=== PATIENT | female | born 1995 | race Caucasian/White ===

== ENCOUNTER 2016-07-19 17:31 | Emergency (ER) | payer MEDICAID ==
[2016-07-19 18:41] LABS: BILIRUBIN,URINE NEGATIVE (NEGATIVE)
[2016-07-19 18:43] LABS: UA w/ MICROSCOPIC CHARGE YES
--- NOTE | 2016-07-19 18:55 | ED Physician Documentation ---
PD HPI FEMALE - Stated complaint Stated Complaint: BLOOD IN URINE/11 WEEKS - Chief complaint Chief Complaint: UTI - History obtained from History obtained from: Patient - History of Present Illness Timing - onset: Today (noted some dysuira and blood in urine. No vaginal discharge nor rash.) Timing - duration: Days (1) Timing - details: Abrupt onset, Still present Associated symptoms: Dysuria, Urinary frequency, Hematuria. No: Fever, Vaginal bleeding, Vaginal discharge, Genital sore/lesion Contributing factors: Similar symptoms before: Diagnosis (UTIs) Recently seen: Not recently seen Review of Systems Constitutional: denies: Fever, Chills Nose: denies: Rhinorrhea / runny nose, Congestion Throat: denies: Sore throat Respiratory: denies: Cough : reports: Dysuria, Frequency, Hematuria, Now EGA (11). denies: Discharge Skin: denies: Rash, Lesions Neurologic: reports: Generalized weakness. 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 HEENT: Tonsil/Adenoidectomy - Present Medications Home Medications: Ambulatory Orders Medication Instructions Recorded Confirmed Cephalexin [Keflex] 500 mg PO TID #18 capsule 07/19/16 Ondansetron HCl [Zofran] 0 mg PO .FREQ 07/19/16 07/19/16 Pnv95/Ferrous Fumarate/FA 07/19/16 [ Tablet] - Allergies Allergies/Adverse Reactions: Allergies Allergy/AdvReac Type Severity Reaction Status Date / Time Penicillins AdvReac Unknown Verified 07/19/16 18:47 - Social History Does the pt smoke?: No Smoking Status: Never smoker Does the pt drink ETOH?: No Does the pt have substance abuse?: No - Immunizations Immunizations are current?: Yes PD ED PE NORMAL - Vitals Vital signs reviewed: Yes - General General: Alert and oriented X 3, No acute distress, Well developed/nourished - HEENT HEENT: Pharynx benign - Neck Neck: Supple, no meningeal sign, No adenopathy - Cardiac Cardiac: RRR, No murmur - Respiratory Respiratory: Clear bilaterally - Abdomen Abdomen: Normal bowel sounds, Soft, Non tender, Non distended, Other (gravid with fundus above the symphysis. Bedside U/S shows viable IUP c/w dates and showing some movement and noted FHR 130s. ) - Female Female : Deferred - Rectal Rectal: Deferred - Back Back: No CVA TTP - Derm Derm: Normal color, Warm and dry Results - Vitals Vitals: Oxygen O2 Source Room air - Labs Labs: Laboratory Tests 07/19/16 17:50 Urine Color YELLOW Urine Clarity HAZY Urine pH 6.5 Ur Specific [place] 1.025 Urine Protein NEGATIVE Urine Glucose (UA) NEGATIVE Urine Ketones NEGATIVE Urine Occult Blood MODERATE H Urine Nitrite NEGATIVE Urine Bilirubin NEGATIVE Urine Urobilinogen 0.2 (NORMAL) Ur Leukocyte Esterase NEGATIVE Urine RBC 6-10 H Urine WBC 4-5 Ur Squamous Epith Cells MANY Squamous H Urine Bacteria Few Urine Mucus Moderate Strands Ur Microscopic Review INDICATED Urine Culture Comments NOT INDICATED PD MEDICAL DECISION MAKING - ED course Complexity details: considered differential (symptoms are c/w UTI and urine is questionable. Given , would err on side of treating, pending culture anyway. ), d/w patient Departure - Departure Disposition: Home, Self Care Clinical Impression: Dysuria, Cystitis Qualifiers: Weeks of gestation: 11 weeks Qualified Code(s): Z3A.11 - 11 weeks gestation of Condition: Stable Record reviewed to determine appropriate education?: Yes Instructions: ED UTI Cystitis Female Follow-Up: Villa Murdock MD [Primary Care Provider] - Prescriptions: Cephalexin [Keflex] 500 mg PO TID #18 capsule Comments: Looks like early bladder infection. Keflex as directed for that. Drink lots of fluids. Recheck with PMD/OB in 2-3 days if not improved. Tylenol if needed for pains/discomfort. Discharge Date/Time: 07/19/16 20:13
[2016-07-19] MEDS ORDERED: CEPHALEXIN 250 MG CAPSULE PO STA (19:18)
[2016-07-19 19:20] LABS: PH,URINE 6.5 PH (5.0-7.5)
[2016-07-19] MEDS ORDERED: CEPHALEXIN 250 MG CAPSULE PO ONE (19:22)
[2016-07-19 19:28] LABS: UR CULTURE IF IND NOT INDICATED
[2016-07-19 20:09] VITALS: BP 143/61
== END 2016-07-19 20:13 | disposition home or self-care (01) ==
LOC: ED 17:31
DX: O23.11 Infections of bladder in pregnancy, first trimester (principal); Z3A.11 11 weeks gestation of pregnancy
CPT/HCPCS: 81001; 99283; A9270; 81003; 87086

== ENCOUNTER 2016-07-31 09:47 | Emergency (ER) | payer MEDICAID ==
[2016-07-31] MEDS ORDERED: SODIUM CHLORIDE 0.9% 1,000 ML IV ONE (11:00)
[2016-07-31] MEDS ORDERED: cefTRIAXone 1 GM in SODIUM CHLORIDE 0.9% MINIBAG 100 ML IV STA (12:58)
[2016-07-31] MEDS ORDERED: cefTRIAXone 1 GM VIAL ONE (12:58)
== END 2016-07-31 13:46 | disposition home or self-care (01) ==
DX: O99.611 Diseases of the digestive system complicating pregnancy, first trimester (principal); K52.9 Noninfective gastroenteritis and colitis, unspecified; O99.281 Endocrine, nutritional and metabolic diseases complicating pregnancy, first trimester; E86.0 Dehydration; O99.89 Other specified diseases and conditions complicating pregnancy, childbirth and the puerperium; H66.92 Otitis media, unspecified, left ear; Z3A.12 12 weeks gestation of pregnancy

== ENCOUNTER 2016-08-04 14:55 | Outpatient (CLI) | payer MEDICAID | END 2016-08-04 14:56 | disposition home or self-care (01) | DX: Z36 Encounter for antenatal screening of mother (principal) ==

== ENCOUNTER 2016-09-27 07:37 | Outpatient (CLI) | payer MEDICAID ==
--- NOTE | 2016-09-27 14:33 | Ultrasound Report ---
OB ULTRASOUND: 09/27/2016 CLINICAL INDICATION: anatomy. TECHNIQUE: Real-time scanning was performed with business services representative static images obtained. LAST MENSTRUAL PERIOD -- Clinical Age -- US Age 20 weeks 5 days EFW Hadlock 364 g EFW% Hadlock -- Heart Rate 150 bpm EDC -- US EDC 02/09/2017 BPD Hadlock 20 weeks 5 days; means mm 48.5 HC Hadlock 20 weeks 5 days; means mm 183.9 AC Hadlock 20 weeks 2 days; means mm 150.2 FL Hadlock 21 weeks 0 day; means mm 34.7 Presentation cephalic Placental Location posterior Cervical Length 3.5 cm Amniotic Fluid 13.9 5-50 % FINDINGS: There is a single viable intrauterine gestation, in cephalic presentation. heart rate is 150 BPM. The placenta is posterior, without evidence of previa. Amniotic fluid volume is normal, with an PREMA of 13.9. By size, the fetus measures 20.7 weeks (uncertain LMP). The kidneys and urinary bladder, extremities, and posterior fossa appear unremarkable. The remainder of the anatomic survey is limited, due to positioning and habitus. No free fluid or adnexal lesion is appreciated. IMPRESSION: SINGLE VIABLE INTRAUTERINE GESTATION, MEASURING 20.7 WEEKS BY SIZE. LIMITED ANATOMIC SURVEY ABOVE. MTDD
== END 2016-09-27 07:38 | disposition home or self-care (01) ==
LOC: DI 07:37
PROVIDERS: ATTEND Obstetrics & Gynecology
DX: Z34.82 Encounter for supervision of other normal pregnancy, second trimester (principal)
CPT/HCPCS: 76811

== ENCOUNTER 2016-10-26 08:02 | Outpatient (CLI) | payer MEDICAID ==
--- NOTE | 2016-10-27 11:17 | Ultrasound Report ---
OBSTETRICAL ULTRASOUND: 10/26/2016 This is a followup exam for (00:10) . TECHNIQUE: Real-time scanning was performed with wholesale representative static images obtained. LAST MENSTRUAL PERIOD 05/04/2016 Clinical Age 25 weeks 0 days US Age 25 weeks 1 day EFW Hadlock 777 g EFW% Hadlock 50% Heart Rate 157 bpm EDC 02/08/2017 US EDC 02/07/2017 BPD Hadlock 25 weeks 3 days; Mean mm 62.8 HC Hadlock 25 weeks 2 days; Mean mm 233.1 AC Hadlock 25 weeks 1 day; Mean mm 205.9 FL Hadlock 25 weeks 0 days; Mean mm 45.5 Presentation cephalic Placental Location posterior Cervical Length --- Amniotic Fluid 21.6 cm Single fetus is noted in vertex position. Composite gestational age by ultrasound today is 25 weeks 1 day. EDC by ultrasound today is 02/08/2017. Present gestational age is one day more advanced than expected as calculated from patient's clinical LMP. It is two days more advanced than expected as calculated from preceding ultrasound. Estimated weight today is 777 grams. This is in the 50th percentile. heart rate today is 157 beats per minute and regular. anatomy was difficult to optimally visualize because of the maternal large body habitus. head was seen and showed no significant abnormality. spine showed no obvious abnormality. bladder was demonstrated. Four-chamber view of the heart appeared normal. Optimal cardiac outflow track could not be demonstrated because of maternal body habitus. bladder is seen and normal. kidneys show no obvious abnormality. face shows normal nasal bones and contour. Placenta is posterior. No evidence of placenta previa is seen. Normal three-vessel umbilical cord is seen. Normal umbilical cord insertion site is noted. Maternal cervix could not optimally be seen. Patient could not tolerate probe pressure over this area. Generous amount of amniotic fluid is noted with PREMA measuring 22 cm. This is right at the upper limits of normal. IMPRESSION: 1. SINGLE FETUS IS NOTED IN VERTEX POSITION. PRESENT GESTATIONAL AGE BY ULTRASOUND IS 25 WEEKS 1 DAY. EDC BY ULTRASOUND TODAY IS 02/08/2017. PRESENT GESTATIONAL AGE IS ONE DAY MORE ADVANCED THAN EXPECTED CALCULATED FROM PATIENT'S LMP. PATIENT'S GESTATIONAL AGE TODAY IS TWO DAYS MORE ADVANCED THAN CALCULATED FROM PATIENT'S LAST ULTRASOUND EXAM. 2. ANATOMY WAS NOT OPTIMALLY VISUALIZED FOR REASONS DISCUSSED ABOVE.. NO OBVIOUS ABNORMALITY WAS SEEN. 3. POSTERIOR PLACENTA IS NOTED WITHOUT EVIDENCE OF PLACENTA PREVIA. 4. GENEROUS AMOUNT OF AMNIOTIC FLUID IS SEEN WITH AMNIOTIC FLUID VOLUME INDEX AT 21.6 CM. THIS IS AT THE UPPER LIMITS OF NORMAL MTDD
== END 2016-10-26 08:03 | disposition home or self-care (01) ==
LOC: DI 08:02
PROVIDERS: ATTEND Obstetrics & Gynecology
DX: Z36 Encounter for antenatal screening of mother (principal)
CPT/HCPCS: 76816

== ENCOUNTER 2016-11-08 17:33 | Outpatient (CLI) | payer MEDICAID ==
[2016-11-08 17:52] VITALS: BP 104/83
[2016-11-08 18:06] LABS: BILIRUBIN,URINE NEGATIVE (NEGATIVE)
[2016-11-08 18:16] LABS: UR CULTURE IF IND NOT INDICATED; WBC,URINE 0-3 /HPF (0-5)
== END 2016-11-08 18:25 | disposition home or self-care (01) ==
LOC: WFO 17:33 → OB 17:35 → WFO 18:25
PROVIDERS: ATTEND Obstetrics & Gynecology
DX: O99.89 Other specified diseases and conditions complicating pregnancy, childbirth and the puerperium (principal); M54.9 Dorsalgia, unspecified; Z3A.26 26 weeks gestation of pregnancy
CPT/HCPCS: 81001; 87086; 99213

== ENCOUNTER 2016-11-08 18:32 | Emergency (ER) | payer MEDICAID ==
[2016-11-08 18:38] VITALS: BP 116/77
[2016-11-08] MEDS ORDERED: HYDROcod/ACET 5/325 Prepack 6 PO STA (21:15)
[2016-11-08] MEDS ORDERED: CYCLOBENZAPRINE 10 MG Prepack 2 PO PRN (21:16)
--- NOTE | 2016-11-08 21:19 | ED Physician Documentation ---
PD HPI BACK PAIN - Stated complaint Stated Complaint: back pain - Chief complaint Chief Complaint: Back Pain - History obtained from History obtained from: Patient - History of Present Illness Timing - onset: Other ( at 26 weeks complains of 3 days of increasing low back pain radiating to both sides and buttocks without weakness, numbness, or tingling, no saddle anesthesia, no incontinence, no fevers, no urinary complaints. 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 HEENT: Tonsil/Adenoidectomy - Present Medications Home Medications: Ambulatory Orders Medication Instructions Recorded Confirmed Acetaminophen 500 - 1,000 mg PO PRN PRN 11/08/16 11/08/16 Cyclobenzaprine [Flexeril] 10 mg PO TID PRN #10 tablet 11/08/16 HYDROcod/ACETAM 5/325 [[place] 5/325] 1 - 2 ea PO Q6H PRN #10 tablet 11/08/16 - Allergies Allergies/Adverse Reactions: Allergies Allergy/AdvReac Type Severity Reaction Status Date / Time Penicillins AdvReac Unknown Verified 11/08/16 20:48 - Social History Does the pt smoke?: No Smoking Status: Never smoker Does the pt drink ETOH?: No Does the pt have substance abuse?: No - Immunizations Immunizations are current?: Yes PD ED PE NORMAL - Vitals Vital signs reviewed: Yes - General General: Alert and oriented X 3, No acute distress - Back Back: No spinal TTP, Other (Paralumbar muscular tenderness.) - Derm Derm: Normal color, Warm and dry - Extremities Extremities: Other (The patient has equal and normal Achilles and patellar reflexes bilaterally. Normal sensation in all areas of the legs. Patient denies saddle anesthesia. Normal strength in flexion-extension at the ankles, knees, and flexion of the hips.) - Neuro Neuro: Alert and oriented X 3, Normal speech - Psych Psych: Normal mood, Normal affect Results - Vitals Vitals: Vital Signs - 24 hr 11/08/16 18:35 Temperature 36.6 C Heart Rate 72 Respiratory 18 Rate Blood Pressure 116/77 O2 Saturation 100 Oxygen O2 Source Room air PD MEDICAL DECISION MAKING - ED course ED course: This patient has seemingly uncomplicated musculoskeletal back pain. The patient has no "red flags." Specifically denies IV drug use, fevers, incontinence, saddle anesthesia. Spinal epidural abscess was considered, given that the patient has no fever, is not diabetic, has no spinal tenderness, does not use IV drugs, and has no bilateral neurologic symptoms, the diagnosis of spinal epidural abscess is considered exceedingly unlikely. The [place] prescription monitoring program was queried with regard to this patient. No concerning findings were found. Departure - Departure Disposition: 01 Home, Self Care Clinical Impression: Back pain Qualifiers: Back pain location: low back pain Chronicity: acute Back pain laterality: bilateral Sciatica presence: without sciatica Qualified Code(s): M54.5 - Low back pain Condition: Good Record reviewed to determine appropriate education?: Yes Instructions: ED Neck Back Pain General Prescriptions: Cyclobenzaprine [Flexeril] 10 mg PO TID PRN #10 tablet PRN Reason: Pain HYDROcod/ACETAM 5/325 [[place] 5/325] 1 - 2 ea PO Q6H PRN #10 tablet PRN Reason: Pain Comments: Call your doctor to arrange a follow-up appointment, make the next available appointment. In the interim, return anytime if worse or if new symptoms develop. Do not drink or drive while taking narcotic pain medication. Note that many narcotic pain relievers also contain Tylenol/acetaminophen. Please ensure that your total dose of acetaminophen from all sources does not exceed 3 g (3000 mg) per day. You may get constipated while on this medication. Take a stool softener such as Colace twice a day while you are on it. Also add an [id number] laxative such as senna or MiraLAX on any day that you do not have a bowel movement. If you received a narcotic pain medication or sedative while in the emergency department, do not drive for the next 24 hours.
[2016-11-08] MEDS ORDERED: HYDROcod/ACET 5/325 Prepack 6 PO ONE (21:20)
[2016-11-08] MEDS ORDERED: CYCLOBENZAPRINE 10 MG Prepack 2 PO ONE (21:21)
== END 2016-11-08 21:29 | disposition home or self-care (01) ==
LOC: ED 18:32
DX: O26.892 Other specified pregnancy related conditions, second trimester (principal); M54.5 Low back pain; Z3A.26 26 weeks gestation of pregnancy
CPT/HCPCS: 81001; 87086; 99213; 99283

== ENCOUNTER 2016-11-24 08:00 | Outpatient (CLI) | payer MEDICAID ==
[2016-11-24 19:02] LABS: BASOPHILS % (AUTO) 0.3 %; EOSINOPHILS % (AUTO) 0.5 %; HCT - HEMATOCRIT 33.8 % (37.0-47.0); HGB - HEMOGLOBIN 11.1 g/dL (12.0-16.0); LYMPHOCYTES # (AUTO) 1.5 10^3/uL (1.5-3.5); LYMPHOCYTES % (AUTO) 17.1 %; MEAN CORPUSCULAR HEMOGLOBIN 28.4 pg (27.0-31.0); MEAN CORPUSCULAR HGB CONC 32.7 g/dL (32.0-36.0); MEAN CORPUSCULAR VOLUME 86.9 fL (81.0-99.0); MONOCYTES # (AUTO) 0.5 10^3/uL (0.0-1.0); MONOCYTES % (AUTO) 5.7 %; NEUTROPHILS # (AUTO) 6.6 10^3/uL (1.5-6.6); NEUTROPHILS % (AUTO) 76.4 %; NUCLEATED RED BLOOD CELLS AUTO 0.1 /100WBC; RED BLOOD COUNT 3.89 10^6/uL (4.20-5.40); RED CELL DISTRIBUTION WIDTH 13.9 % (12.0-15.0); UNCORRECTED WHITE BLOOD COUNT 8.6 x10^3/uL; WHITE BLOOD COUNT 8.6 x10^3/uL (4.8-10.8)
== END 2016-11-24 08:01 | disposition home or self-care (01) ==
LOC: LAB.WCP 08:00
PROVIDERS: ATTEND Obstetrics & Gynecology
DX: Z36 Encounter for antenatal screening of mother (principal)
CPT/HCPCS: 36415; 82950; 85025; 86850

== ENCOUNTER 2019-05-18 08:00 | Outpatient (CLI) | payer MEDICAID ==
[2019-05-18 19:37] LABS: TRICHOMONAS VAGINALIS DNA NEGATIVE (NEGATIVE)
== END 2019-05-18 23:59 | disposition home or self-care (01) ==
LOC: LAB.R 08:00
PROVIDERS: ATTEND Nurse Practitioner Obstetrics & Gynecology
DX: Z11.3 Encounter for screening for infections with a predominantly sexual mode of transmission (principal)
CPT/HCPCS: 87491; 87591; 87661

== ENCOUNTER 2019-05-30 09:49 | Outpatient (CLI) | payer MEDICAID | END 2019-05-30 09:50 | disposition home or self-care (01) | LOC: LAB 09:49 | PROVIDERS: ATTEND Nurse Practitioner Obstetrics & Gynecology | DX: O03.9 Complete or unspecified spontaneous abortion without complication (principal) | CPT/HCPCS: 36415; 84702 ==

== ENCOUNTER 2019-06-06 13:20 | Outpatient (CLI) | payer MEDICAID | END 2019-06-06 13:21 | disposition home or self-care (01) | LOC: LAB.S 13:20 | PROVIDERS: ATTEND Nurse Practitioner Obstetrics & Gynecology | DX: O03.9 Complete or unspecified spontaneous abortion without complication (principal) | CPT/HCPCS: 36415; 84702 ==

== ENCOUNTER 2019-06-21 10:48 | Outpatient (CLI) | payer MEDICAID | END 2019-06-21 10:49 | disposition home or self-care (01) | LOC: LAB.S 10:48 | PROVIDERS: ATTEND Nurse Practitioner Obstetrics & Gynecology | DX: Z33.2 Encounter for elective termination of pregnancy (principal) | CPT/HCPCS: 36415; 84702 ==

== ENCOUNTER 2020-06-13 08:00 | Outpatient (CLI) | payer MEDICAID | END 2020-06-13 23:59 | disposition home or self-care (01) | LOC: LAB.R 08:00 | PROVIDERS: ATTEND Obstetrics & Gynecology | DX: Z20.2 Contact with and (suspected) exposure to infections with a predominantly sexual mode of transmission (principal) | CPT/HCPCS: 87491; 87591; 87661 ==

== ENCOUNTER 2020-06-13 15:43 | Outpatient (CLI) | payer MEDICAID ==
[2020-06-13 16:38] LABS: CHOL/HDL RATIO 5.2 (<4.4); CHOLESTEROL 206 mg/dL; HDL CHOLESTEROL 40 mg/dL; LDL CHOLESTEROL,CALCULATED 137 mg/dL; LDL/HDL RATIO 3.4 (<4.4); VLDL CHOLESTEROL 29 mg/dL
[2020-06-13 21:03] LABS: HEMOGLOBIN A1c% 5.8 % (4.27-6.07)
[2020-06-14 10:52] LABS: HIV AG/AB 4TH GEN NON-REACTIVE (NON-REACTIVE)
[2020-06-14 12:42] LABS: HEPATITIS B SURFACE ANTIGEN NON-REACTIVE (NON-REACTIVE)
== END 2020-06-13 15:44 | disposition home or self-care (01) ==
LOC: LAB 15:43
PROVIDERS: ATTEND Obstetrics & Gynecology
DX: E66.01 Morbid (severe) obesity due to excess calories (principal); Z20.2 Contact with and (suspected) exposure to infections with a predominantly sexual mode of transmission
CPT/HCPCS: 36415; 80061; 81599; 83036; 83721; 84443; 86592; 87340; 87389; 87491; 87591; 87661

== ENCOUNTER 2020-06-18 22:03 | Emergency (ER) | payer MEDICAID ==
[2020-06-18 23:01] LABS: BILIRUBIN,URINE NEGATIVE (NEGATIVE); CLARITY,URINE CLEAR (CLEAR); GLUCOSE, URINE (UA) NEGATIVE (NEGATIVE); KETONES,URINE (UA) NEGATIVE (NEGATIVE); LEUKOCYTE ESTERASE, URINE NEGATIVE (NEGATIVE); NITRITE,URINE NEGATIVE (NEGATIVE); OCCULT BLOOD,URINE NEGATIVE (NEGATIVE); PROTEIN,URINE NEGATIVE (NEGATIVE); UROBILINOGEN,URINE 0.2 (NORMAL) E.U./dL (NORMAL)
[2020-06-18 23:02] LABS: HCG UR QUAL NEGATIVE
[2020-06-18] MEDS ORDERED: SODIUM CHLORIDE 0.9% 1,000 ML IV STA (23:19)
[2020-06-18] MEDS ORDERED: KETOROLAC 30 MG/ML VIAL IVP STA (23:19)
[2020-06-18] MEDS ORDERED: ONDANSETRON 4 MG/2 ML VIAL IVP STA (23:19)
--- NOTE | 2020-06-18 23:22 | ED Physician Documentation ---
PD HPI ABD PAIN - Stated complaint Stated Complaint: ABD PX - Chief complaint Chief Complaint: Abd Pain - History obtained from History obtained from: Patient - History of Present Illness Timing - onset: Today Timing - duration: Hours Timing - details: Gradual onset, Still present Pain level max: 7 Pain level now: 7 Quality: Cramping, Sharp, Pain Location: RLQ, Suprapubic Improved by: Laying still Worsened by: Moving, Position, Palpation Associated symptoms: Nausea, Vomiting. No: Fever Similar symptoms before: Has not had sx before Recently seen: Clinic - Additional information Additional information: 24-year-old female had a Depo-Provera shot done 5 days ago and this morning aw pari with pain in her scar that was tender and firm above and over the scar and she has had a reduced appetite and some vomiting but no fever. She has not had these symptoms previously. She denies any diarrhea or constipation. Review of Systems Constitutional: denies: Fever Eyes: denies: Decreased vision Ears: denies: Ear pain Nose: denies: Congestion Throat: denies: Sore throat Cardiac: denies: Chest pain / pressure, Palpitations Respiratory: denies: Dyspnea, Cough GI: reports: Abdominal Pain, Nausea, Vomiting. 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 - Present Medications Home Medications: Ambulatory Orders Medication Instructions Recorded Confirmed Azithromycin [Zithromax] 250 mg PO DAILY #4 tab 06/19/20 traMADol [Ultram] 50 - 100 mg PO Q6H PRN #20 tab 06/19/20 - Allergies Allergies/Adverse Reactions: Allergies Allergy/AdvReac Type Severity Reaction Status Date / Time Penicillins AdvReac Unknown Verified 06/18/20 22:18 - Social History Does the pt smoke?: No Smoking Status: Never smoker Does the pt drink ETOH?: No Does the pt have substance abuse?: No - Immunizations Immunizations are current?: Yes PD ED PE NORMAL - Vitals Vital signs reviewed: Yes (Afebrile and hypertensive) - General General: Alert and oriented X 3, No acute distress, Well developed/nourished - HEENT HEENT: Atraumatic, PERRL, EOMI, Other (both TM's inflammed with distortion of the landmarks. ) - Neck Neck: Supple, no meningeal sign - Cardiac Cardiac: RRR, No murmur - Respiratory Respiratory: No respiratory distress, Clear bilaterally - Abdomen Abdomen: Normal bowel sounds, Soft, Non distended, No organomegaly, Other (There is morbid obesity and there is a well-healed Pfannenstiel incision with some satellite papules consistent with a yeast dermatitis the area itself is not particularly tender however when I compress the right lower quadrant lateral to the scar there is pain to the right lower quadrant ) - Back Back: No CVA TTP, No spinal TTP - Derm Derm: Normal color, Warm and dry, No rash - Extremities Extremities: No deformity, No edema - Neuro Neuro: Alert and oriented X 3, director dental services 2-12 intact, No motor deficit, No sensory deficit, Normal speech Eye Opening: Spontaneous Motor: Obeys Commands Verbal: Oriented GCS Score: 15 - Psych Psych: Normal mood, Normal affect Results - Vitals Vitals: Vital Signs - 24 hr 06/18/20 06/19/20 06/19/20 22:17 00:18 02:00 Temperature 36.1 C L 37.0 C 37.1 C Heart Rate 91 81 82 Respiratory 19 18 18 Rate Blood Pressure 138/78 H 134/102 H 150/98 H O2 Saturation 100 98 99 06/19/20 03:12 Temperature 36.9 C Heart Rate 84 Respiratory 18 Rate Blood Pressure 138/85 H O2 Saturation 98 Oxygen O2 Source Room air - Labs Labs: Laboratory Tests 06/18/20 06/18/20 06/18/20 22:34 22:34 23:44 WBC 11.5 H RBC 4.65 Hgb 13.2 Hct 41.1 MCV 88.4 MCH 28.4 MCHC 32.1 RDW 13.6 Plt Count 250 MPV 10.6 Neut # (Auto) 5.8 Lymph # (Auto) 4.9 H Ida # (Auto) 0.7 Eos # (Auto) 0.1 Baso # (Auto) 0.0 Absolute Nucleated RBC 0.00 Nucleated RBC % 0.0 Sodium Potassium Chloride Carbon Dioxide Anion Gap BUN Creatinine Estimated GFR (MDRD) Glucose Calcium Total Bilirubin AST ALT Alkaline Phosphatase Total Protein Albumin Globulin Albumin/Globulin Ratio Lipase Urine Color YELLOW Urine Clarity CLEAR Urine pH 6.0 Ur Specific [place] 1.020 Urine Protein NEGATIVE Urine Glucose (UA) NEGATIVE Urine Ketones NEGATIVE Urine Occult Blood NEGATIVE Urine Nitrite NEGATIVE Urine Bilirubin NEGATIVE Urine Urobilinogen 0.2 (NORMAL) Ur Leukocyte Esterase NEGATIVE Ur Microscopic Review NOT INDICATED Urine Culture Comments NOT INDICATED Urine HCG, Qual NEGATIVE 06/18/20 23:44 WBC RBC Hgb Hct MCV MCH MCHC RDW Plt Count MPV Neut # (Auto) Lymph # (Auto) Ida # (Auto) Eos # (Auto) Baso # (Auto) Absolute Nucleated RBC Nucleated RBC % Sodium 136 Potassium 3.7 Chloride 103 Carbon Dioxide 24 Anion Gap 9.0 BUN 18 Creatinine 0.6 Estimated GFR (MDRD) 121 Glucose 108 H Calcium 8.9 Total Bilirubin 0.3 AST 17 ALT 23 Alkaline Phosphatase 56 Total Protein 7.2 Albumin 4.2 Globulin 3.0 Albumin/Globulin Ratio 1.4 Lipase 21 L Urine Color Urine Clarity Urine pH Ur Specific [place] Urine Protein Urine Glucose (UA) Urine Ketones Urine Occult Blood Urine Nitrite Urine Bilirubin Urine Urobilinogen Ur Leukocyte Esterase Ur Microscopic Review Urine Culture Comments Urine HCG, Qual - Rads (name of study) CT ab/pel with Radiology: Prelim report reviewed (Impression: 1. No acute abnormality. No free intraperitoneal air or fluid. No inflammatory obstructive changes involving the bowel or genitourinary tract.), EMP read indepedently, See rad report us pelvis Radiology: Prelim report reviewed (Impression: No significant abnormality.), EMP read indepedently, See rad report PD MEDICAL DECISION MAKING - ED course Complexity details: reviewed results, re-evaluated patient, considered differential, d/w patient ED course: 24 y/o female with lower abdominal pain has tenderness to the right and a negative CT and negative ultrasound. She does have some yeast to the panus but this is chronic and not different from her usual. There is no specific explanation for the pain. The patient does have nasal congestion and OM on exam and this is treated with decadron and zithromax. She is given a limited supply of tramadol for the pain and she is instructed to return to the ED if there is worsening or failure to resolve. Departure - Departure Disposition: 01 Home, Self Care Clinical Impression: Otitis media Abdominal pain Qualifiers: Abdominal location: right lower quadrant Qualified Code(s): R10.31 - Right lower quadrant pain Condition: Stable Instructions: ED Abdominal Pain Unkn Cause, ED Otitis Media Acute Adult Follow-Up: Lauren Hassan ARNP [Primary Care Provider] - Prescriptions: traMADol [Ultram] 50 - 100 mg PO Q6H PRN #20 tab PRN Reason: Pain Azithromycin [Zithromax] 250 mg PO DAILY #4 tab Discharge Date/Time: 06/19/20 03:14
[2020-06-18 23:50] LABS: BASOPHILS % (AUTO) 0.2 %; EOSINOPHILS # (AUTO) 0.1 10^3/uL (0.0-0.7); EOSINOPHILS % (AUTO) 1.2 %; HGB - HEMOGLOBIN 13.2 g/dL (12.0-16.0); LYMPHOCYTES # (AUTO) 4.9 10^3/uL (1.5-3.5); LYMPHOCYTES % (AUTO) 42.4 %; MEAN CORPUSCULAR HEMOGLOBIN 28.4 pg (27.0-31.0); MEAN CORPUSCULAR HGB CONC 32.1 g/dL (32.0-36.0); MEAN CORPUSCULAR VOLUME 88.4 fL (81.0-99.0); MEAN PLATELET VOLUME 10.6 fL (7.9-10.8); MONOCYTES # (AUTO) 0.7 10^3/uL (0.0-1.0); MONOCYTES % (AUTO) 5.7 %; NEUTROPHILS # (AUTO) 5.8 10^3/uL (1.5-6.6); NEUTROPHILS % (AUTO) 50.3 %; PLT - PLATELET COUNT 250 10^3/uL (130-450); RED BLOOD COUNT 4.65 10^6/uL (4.20-5.40); RED CELL DISTRIBUTION WIDTH 13.6 % (12.0-15.0); WHITE BLOOD COUNT 11.5 x10^3/uL (4.8-10.8)
[2020-06-19 00:02] LABS: ALBUMIN 4.2 g/dL (3.2-5.5); ALBUMIN/GLOBULIN RATIO 1.4 (1.0-2.2); BILIRUBIN,TOTAL 0.3 mg/dL (0.2-1.0); CALCIUM 8.9 mg/dL (8.5-10.3); CREATININE 0.6 mg/dL (0.4-1.0); TOTAL PROTEIN 7.2 g/dL (6.7-8.2)
[2020-06-19] MEDS ORDERED: IOVERSOL 320 100 ML VIAL IVP ONE ×2 (00:32)
[2020-06-19] MEDS ORDERED: DEXAMETHASONE 10 MG/ML VIAL PO STA (02:55)
[2020-06-19] MEDS ORDERED: CHERRY SYRUP 10 ML UDC PO ONE (02:55)
[2020-06-19] MEDS ORDERED: AZITHROMYCIN 250 MG TABLET PO STA (02:55)
[2020-06-19] MEDS ORDERED: traMADol 50 MG TABLET PO STA (02:56)
[2020-06-19 03:14] VITALS: BP 138/85
--- NOTE | 2020-06-19 09:00 | CT Report ---
PROCEDURE: Abdomen/Pelvis W INDICATIONS: RLQ abdominal pain CONTRAST: IV CONTRAST: Optiray 320 ml: 100 PO CONTRAST: *NO PO CONTRAST TECHNIQUE: After the administration of IV contrast, 5 mm thick sections acquired from the diaphragms to the symp hysis. 5 mm thick coronal and sagittal reformats were acquired. For radiation dose reduction, the f ollowing was used: automated exposure control, adjustment of mA and/or kV according to patient size. COMPARISON: None. FINDINGS: Image quality: Excellent. ABDOMEN: Lung bases: Lung bases are clear. Heart size is normal. Solid organs: Liver and spleen are normal in size and enhancement. Gallbladder is partially contrac gavin Biliary system is non dilated. Pancreas enhances normally. No adrenal nodules. Kidneys demons trate normal size and enhancement, without hydronephrosis. Peritoneum and bowel: Bowel loops demonstrate normal wall thickness and caliber. Normal appendix. N o free fluid or air. Nodes and vessels: There are a few scattered mildly prominent mesenteric lymph nodes measuring less t crisostomo 10 mm short axis. Aorta and inferior vena cava are normal in size. Miscellaneous: No ventral hernias. PELVIS: Genitourinary: Bladder wall thickness is normal. Miscellaneous: No inguinal hernias or adenopathy. Bones: No suspicious bony lesions. No vertebral body compression fractures. IMPRESSION: 1. Mildly prominent mesenteric lymph nodes, consistent with mesenteric adenitis in the appropriate cl inical setting. 2. Normal appendix. 3. Concordant with preliminary interpretation. Reviewed by: Rocío Knight MD on 06/19/2020 8:59 AM [facility] Approved by: Rocío Knight MD on 06/19/2020 8:59 AM PST Station ID: [id number]
--- NOTE | 2020-06-19 09:37 | Ultrasound Report ---
PROCEDURE: Pelvic w/Transvag+Doppler Ltd INDICATIONS: RLQ pain TECHNIQUE: Real-time scanning was performed of the pelvic organs, with image documentation. Additional endovagi nal scanning was necessary due to incomplete visualization of the adnexal and endometrial structures by transabdominal scanning. COMPARISON: None. FINDINGS: No pathologic free abdominal or pelvic fluid. Uterus: Uterus is normal in size at 10.5 x 6.1 x 4.8 cm. The endometrium measures 11.4 mm in combin ed thickness. Nabothian cysts are noted. Small hyperechoic focus is noted at the edge of the endomet rium measuring approximately 2 mm, overall nonspecific. Doppler flows identified suggestive of vascul ar origin. Ovaries: Right ovary measures 3.2 x 2.8 x 2.57 m, volume 11.7 cc. Left ovary measures 3.1 x 2.1 x 2. 2 cm, volume 7.5 cc. IMPRESSION: 1. Unremarkable exam. The above findings are concordant with preliminary report. Reviewed by: Diane Elikns MD on 06/19/2020 9:35 AM PST Approved by: Diane Elkins MD on 06/19/2020 9:35 AM PST Station ID: [id number]
== END 2020-06-19 03:14 | disposition home or self-care (01) ==
LOC: ED 22:03
DX: R10.31 Right lower quadrant pain (principal); H66.93 Otitis media, unspecified, bilateral; R09.81 Nasal congestion; B37.2 Candidiasis of skin and nail; E66.01 Morbid (severe) obesity due to excess calories; Z68.43 Body mass index [BMI] 50.0-59.9, adult
CPT/HCPCS: 36415; 74177; 76830; 76856; 80053; 81003; 81025; 83690; 85025; 93976; 96374; 99284; A9270; Q9967; 81001; 87086